=== PATIENT | male | born 1965 | race Two or more races ===

== ENCOUNTER 2023-03-29 19:49 | Emergency (ER) | payer BC, MEDICAID ==
[~2023-03-29] VITALS: Ht 170.2 cm; Wt 71.8 kg
[2023-03-29 20:30] LABS: Acetaminophen < 2.0 UG/ML (10.0-20.0)
[2023-03-29 21:11] LABS: Salicylate < 3.0 mg/dL (2.8-20.0)
[2023-03-29 22:25] LABS: Amphetamine Screen, Urine Neg (NEGATIVE); Barbiturate Scree,Urine Neg (NEGATIVE); Benzodiazephine Screen, Urine Neg (NEGATIVE); Cocaine Screen, Urine Neg (NEGATIVE); Opiate Scree,Urine Neg (NEGATIVE); Phencyclidine Screen, Urine Neg (NEGATIVE)
[2023-03-29 22:26] LABS: Cannabinoid Screen, Urine Neg (NEGATIVE)
[2023-03-30 07:50] VITALS: PULSE 75; RESP 16; O2SAT 96
[2023-03-30] MEDS: ACETAMINOPHEN 325 MG TAB PO ONE (11:41)
[2023-03-30] MEDS: ACETAMINOPHEN 500 MG TAB PO ONE (21:13)
[2023-03-31 07:50] VITALS: PULSE 66; RESP 18; O2SAT 97
[2023-03-31] MEDS: ACETAMINOPHEN 500 MG TAB PO ONE (09:07)
[2023-03-31 11:30] VITALS: BP 122/85; PULSE 80; RESP 16; TEMP 98.1; O2SAT 98
== END 2023-03-31 12:02 ==
LOC: ER 19:49
DX: R45.851 Suicidal ideations (principal); R07.89 Other chest pain; F17.210 Nicotine dependence, cigarettes, uncomplicated
CPT/HCPCS: 36415; 80307; 80320; 80329; 93005